=== PATIENT | female | born 1980 | race American Indian/Alaskan Native ===

== ENCOUNTER 2017-09-07 10:34 | Observation (INO) | payer OTHER ==
--- NOTE | 2017-09-06 09:48 | Anesthesia Consultation ---
Anesthesia Consult and Med Hx Date of service: 09/06/17 - Airway Anesthetic Teeth Evaluation: Good, Chipped (top right and left molar) ROM Head & Neck: Adequate Mental/Hyoid Distance: Adequate Mallampati Class: Class II Intubation Access Assessment: Probably Good - Pulmonary Exam CTA: Yes - Cardiac Exam Cardiac Exam: RRR - Pre-Operative Health Status ASA Pre-Surgery Classification: ASA2 Proposed Anesthetic Plan: General Nerve Block: tap - Pulmonary Hx Smoking: Yes (3 cigs / day, smoked since age 10) Hx Asthma: Yes (childhood and seasonal) Hx Respiratory Symptoms: No (sinus problems) - Cardiovascular System Hx Hypertension: No - Central Nervous System Hx Seizures: No CVA: No Hx Psychiatric Problems: No - Endocrine Hx End Stage Renal Disease: No Hx Hypothyroidism: No - Other Systems Hx Alcohol Use: Yes (occas) Hx Cancer: No Hx Obesity: Yes
[2017-09-06 10:33] LABS: Eosinophils % (Auto) 12.8 % (0.0-4.3); Hematocrit 35.4 % (30.3-42.9); Hemoglobin 11.7 gm/dl (10.1-14.3); Mean Corpuscular HGB Conc 33 % (30-34); Mean Corpuscular Hemoglobin 28 pg (28-32); Mean Corpuscular Volume 84 fl (79-97); Platelet Count 336 K/mm3 (140-440); Red Blood Count 4.21 M/mm3 (3.65-5.03); Red Cell Distribution Width 17.8 % (13.2-15.2); White Blood Count 5.7 K/mm3 (4.5-11.0)
[~2017-09-07 10:34] MED LIST: NACL 0.9% 1000 ML 1,000 ML IV SCH; NEURONTIN PO NR; PEPCID PO NR; SUBLIMAZE IV NR; VERSED IV NR
--- NOTE | 2017-09-07 11:56 | History and Physical Report ---
History of Present Illness Date of examination: 09/07/17 Chief complaint: Prolonged heavy vaginal bleeding due to uterine fibroids and Adenomyosis History of present illness: Pt is a 36yo BF LMP 08/26/17 presents for surgical evaluation and treatment of prolonged heavy vaginal bleeding due to uterine fibroids and Adenomyosis. Pelvic u/s 05/17/17 showed uterus 9.1 x 5.5 x 4.8cm with 2 anterior wall fibroids and myometrium suggestive of Adenomyosis. She is now consented for a Robotic Assisted Total Hysterectomy with ovarian conservation. 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 Family/Genetic History: diabetes, hypertension Social history: no significant social history, Medications and Allergies Allergies Allergy/AdvReac Type Severity Reaction Status Date / Time No Known Allergies Allergy Unverified 09/01/17 12:13 Home Medications Medication Instructions Recorded Confirmed Last Taken Type No Known Home Medications [No 09/01/17 09/01/17 Unknown History Reported Home Medications] Active Meds: Active Medications Celecoxib (Celebrex) 200 mg PO PREOP NR Stop: 09/07/17 23:59 Famotidine (Pepcid) 20 mg PO PREOP NR Stop: 09/07/17 23:59 Fentanyl (Sublimaze) 100 mcg IV ONCE NR Stop: 09/07/17 23:59 Gabapentin (Neurontin) 600 mg PO PREOP NR Stop: 09/07/17 23:59 Sodium Chloride (Nacl 0.9% 1000 Ml) 1,000 mls @ 75 mls/hr IV DIRECT PAYTON Midazolam HCl (Versed) 2 mg IV PREOP NR Stop: 09/07/17 23:59 Review of Systems All systems: negative - Vital Signs Vital signs: Vital Signs Temp Pulse Resp BP 98.5 F 70 16 120/76 09/06/17 09:00 09/06/17 09:00 09/06/17 09:00 09/06/17 09:00 Temp Pulse Resp BP Pulse Ox 98.5 F 70 16 120/76 09/06/17 09:00 09/06/17 09:00 09/06/17 09:00 09/06/17 09:00 - Physical Exam Breasts: Positive: deferred Cardiovascular: Regular rate Lungs: Positive: Clear to auscultation Abdomen: Positive: normal appearance Genitourinary (Female): Positive: normal external genitalia Vagina: Positive: normal moisture Uterus: Positive: enlarged Anus/Rectum: Positive: normal perianal skin Extremities: Positive: normal Results Result Diagrams: 09/06/17 09:10 All other labs normal. Ultrasound: report reviewed Assessment and Plan - Patient Problems (1) Adenomyosis Onset Date: 09/07/17 Current Visit: Yes Status: Acute Plan to address problem: A: Menorrhagia - due to uterine fibroids and adenomyosis P: Will proceed with a Robotic Assisted Total Hysterectomy with Bilateral Salpingectomy (2) Uterine fibroid Onset Date: 09/07/17 Current Visit: Yes Status: Acute Qualifiers: Uterine leiomyoma location: intramural and subserous Qualified Code(s): D25.1 - Intramural leiomyoma of uterus; D25.2 - Subserosal leiomyoma of uterus; D25.2 - Subserosal leiomyoma of uterus
[2017-09-07] MEDS ORDERED: ANCEF/STERILE WATER 2 GM/20 ML 2 GM/20 ML SYRINGE IV SCH (12:00)
[2017-09-07] MEDS ORDERED: LACTATED RINGERS 1,000 ML IV SCH (12:00)
[2017-09-07] MEDS ORDERED: PROAIR IH ONE (12:30)
[2017-09-07] MEDS ORDERED: DECADRON ONE ×2 (12:39→14:47)
[2017-09-07] MEDS ORDERED: MARCAINE 0.5% INFILTRATI ONE (12:41)
[2017-09-07] MEDS ORDERED: NEOSPORIN GU IR ONE ×2 (13:23→15:00)
--- NOTE | 2017-09-07 13:23 | Anesthesia Day of Surgery ---
Anesthesia Day of Surgery - Day of Surgery Patient Examined: Yes Patient H&P Reviewed: Yes Patient is NPO: Yes
[2017-09-07] MEDS ORDERED: XYLOCAINE MPF 2% ONE (13:37)
[2017-09-07] MEDS ORDERED: DIPRIVAN 10 MG/ML IV ONE (13:37)
[2017-09-07] MEDS ORDERED: DILAUDID ONE ×2 (13:37→15:44)
[2017-09-07] MEDS ORDERED: ZEMURON IV ONE (13:37)
[2017-09-07] MEDS ORDERED: NACL 0.9% 1000 ML 1,000 ML ONE (14:21)
[2017-09-07] MEDS ORDERED: NEOSTIGMINE ONE (14:47)
[2017-09-07] MEDS ORDERED: ROBINUL ONE (14:47)
[2017-09-07] MEDS ORDERED: ZOFRAN ONE (14:47)
[2017-09-07] MEDS ORDERED: WATER FOR IRRIG STERILE IR ONE (15:00)
[2017-09-07] MEDS ORDERED: NACL 0.9% IR ONE ×2 (15:00)
[2017-09-07] MEDS ORDERED: MILK OF MAGNESIA PO PRN (15:20)
[2017-09-07] MEDS ORDERED: PERCOCET 5/325 PO PRN (15:20)
[2017-09-07] MEDS ORDERED: NARCAN 0.4 MG/1 ML IV PRN (15:20)
[2017-09-07] MEDS ORDERED: NORCO 5/325 PO PRN (15:20)
[2017-09-07] MEDS ORDERED: SODIUM CHLORIDE FLUSH SYRINGE 10 ML IV PRN (15:20)
[2017-09-07] MEDS ORDERED: REGLAN IV PRN (15:20)
[2017-09-07] MEDS ORDERED: TYLENOL PO PRN (15:20)
[2017-09-07] MEDS ORDERED: ZOFRAN IV PRN (15:20)
--- NOTE | 2017-09-07 15:20 | Operative Report ---
Operative Report Operative Report: Date of procedure: 09/07/2017 Pre-operative diagnosis: 1. Menorrhagia 2. Adenomyosis 3. Uterine fibroids Post-operative diagnosis: Same Procedure name(s): 1. Robotic-assisted total hysterectomy 2. Bilateral salpingectomy Surgeon: Catrachito Larry MD Mems Integration Engineer: MERLIN Garcia Anesthesia: LITA Block followed by general endotracheal intubation EBL: Less than 50 mL's Findings: A 10-12 week size uterus with tubes showed evidence of previous tubal ligation bilaterally. Normal ovaries bilaterally. Procedure: After the patient's first correctly identified she was prepped and draped in the usual sterile fashion and placed in the dorsolithotomy position. The bladder was first catheterized using Harley catheter and the speculum was placed in the vagina and the anterior lip of the cervix was grasped using a single-tooth tenaculum, and the medium Vesicare cup was placed. The tenaculum and speculum was then removed from the vagina and attention was then turned to the abdomen. The skin knife was used to make a small incision approximately 5 cm above the umbilicus through which a 12 mm trocar was placed under direct visualization. After adequate amount of abdominal insufflation visualization of the pelvic organs found the uterus to be enlarged and the tubes showed evidence of previous tubal ligation, and ovaries were found to be normal bilaterally. A right lateral incision was made through which a 5 mm trocar was placed under direct visualization. A right and left paramedian incision was made through which the 8 mm trochars were placed under direct visualization. The patient was then placed in steep Trendelenburg positioning and the robot was docked on the patient's left side. After all the robotic ports were connected and adequate functioning of the robotic arms were tested the surgeon then proceeded to the console to begin the hysterectomy. First the left round ligament was grasped, cauterized and cut, the left utero- ovarian ligaments were grasped, cauterized and cut, and the left fallopian tube also grasped, cauterized and cut along the mesosalpinx thus freeing the left ovary from the left uterine sidewall. The same procedure was performed on the right. The right round ligament was grasped, cauterized and cut, the right utero-ovarian ligaments were grasped, cauterized and cut, and the right fallopian tube also grasped, cauterized and cut along the mesosalpinx thus freeing the right ovary from the right uterine sidewall. The bladder flap was taken down anteriorly and the uterine vessels were grasped, cauterized and cut bilaterally. The cardinal ligaments were sequentially grasped, cauterized and cut down to the level of the uterosacral ligaments. At this time the posterior colpotomy was performed over the Vcare cup, and the cervix was circumscribed beginning posteriorly and meeting anteriorly until the cervix was freed. The cervix and uterus was then removed through the vagina and sent to pathology. The vaginal cuff was then closed using 2-0 Vloc suture in a running fashion. Irrigation was then performed and after good hemostasis was achieved the procedure was considered complete. The Tisseel sealant was then sprayed across the vaginal cuff site, and after excellent hemostasis was assured Interceed was placed across the vaginal cuff site. All instruments were then removed from the abdominal cavity. And each incision was closed using 0 Vicryl suture in a [id number] configuration on the fascia followed by 4-0 Monocryl suture in a sub-cuticular fashion on the skin. Each incision was also infiltrated using 0.5% Marcaine solution. The vaginal pack was removed. The patient tolerated the procedure well and was transported to the recovery room in stable condition.
[2017-09-07] MEDS ORDERED: DILAUDID IV PRN (15:40)
[2017-09-07] MEDS: TORADOL IV SCH ×2 (15:49→22:02)
[2017-09-07] MEDS ORDERED: D5LR 1,000 ML IV SCH (16:00)
[2017-09-07] MEDS ORDERED: ANCEF/NS 1 GM/50 ML 1 GM/50 ML BAG IV SCH (16:00)
--- NOTE | 2017-09-07 17:05 | Post Anesthesia Evaluation ---
- Post Anesthesia Evaluation Patient Participated: Yes Airway Patent: Yes Stable Respiratory Function: Yes Nausea/Vomiting: No Temp > 96.8F: Yes Pain Manageable: Yes Adequeate Hydration: Yes Anesthesia Complications: No
[2017-09-07] MEDS: ceFAZolin 1 GM in NACL 0.9% 20 ML IV SCH (21:57)
[2017-09-07] MEDS: COLACE PO SCH (22:58)
[2017-09-08] MEDS: TORADOL IV SCH (03:52)
[2017-09-08 05:21] LABS: Hematocrit 33.3 % (30.3-42.9); Hemoglobin 10.8 gm/dl (10.1-14.3)
[2017-09-08] MEDS: ceFAZolin 1 GM in NACL 0.9% 20 ML IV SCH (05:27)
--- NOTE | 2017-09-08 09:10 | Progress Note ---
Assessment and Plan - Patient Problems (1) Adenomyosis Onset Date: 09/07/17 Current Visit: Yes Status: Resolved (2) Uterine fibroid Onset Date: 09/07/17 Current Visit: Yes Status: Resolved Qualifiers: Uterine leiomyoma location: intramural and subserous Qualified Code(s): D25.1 - Intramural leiomyoma of uterus; D25.2 - Subserosal leiomyoma of uterus; D25.2 - Subserosal leiomyoma of uterus (3) Status post robot-assisted surgical procedure Onset Date: 09/08/17 Current Visit: Yes Status: Resolved Plan to address problem: A: S/P RATH - POD #1 Doing well P: May go home today. Subjective - Subjective Date of service: 09/08/17 Principal diagnosis: s/p RATH - POD #1 Interval history: Pt is feeling well without complaints. She is tolerating a liquid diet without nausea or vomiting, ambulating and voiding without difficulty. Patient reports: appetite normal, voiding normally, pain well controlled, flatus , ambulating normally Objective - Vital Signs Latest vital signs: Vital Signs Temp Pulse Resp BP BP Pulse Ox 09/08/17 04:52 97.8 F 51 L 18 122/54 09/08/17 03:52 16 09/08/17 01:19 97.8 F 52 L 20 107/69 09/07/17 22:32 16 09/07/17 22:02 16 09/07/17 20:35 97.5 F L 52 L 18 111/70 09/07/17 18:40 97.6 F 62 15 109/63 100 09/07/17 18:35 97.6 F 54 L 15 109/63 100 09/07/17 18:15 97.4 F L 54 L 13 107/59 97 09/07/17 18:00 56 L 17 103/60 98 09/07/17 17:45 52 L 13 97/59 95 09/07/17 17:30 59 L 11 L 99/57 97 09/07/17 17:15 53 L 13 90/60 94 09/07/17 17:00 55 L 10 L 97/58 96 09/07/17 16:45 51 L 12 94/53 95 09/07/17 16:30 50 L 11 L 97/54 94 09/07/17 16:15 51 L 10 L 93/60 95 09/07/17 16:00 52 L 11 L 92/55 95 09/07/17 15:49 12 09/07/17 15:45 51 L 12 98/60 96 09/07/17 15:40 51 L 11 L 103/58 96 09/07/17 15:29 68 12 109/65 100 09/07/17 15:21 98.8 F 68 12 95/41 100 09/07/17 13:20 63 15 102/61 100 09/07/17 13:15 62 15 108/62 99 09/07/17 13:10 60 13 104/64 99 09/07/17 13:05 62 12 104/66 100 09/07/17 13:00 60 15 106/60 100 09/07/17 12:55 59 L 15 105/61 100 09/07/17 12:50 60 12 104/71 100 09/07/17 12:45 60 11 L 108/68 100 09/07/17 12:40 68 15 105/64 100 09/07/17 12:08 98.4 F 64 13 115/54 99 09/07/17 12:03 98.4 F 64 13 115/54 99 Intake and Output 09/07/17 09/08/17 09/08/17 22:59 06:59 14:59 Intake Total 700 480 Output Total 50 1100 Balance 650 -620 Intake: IV 700 Intake, Free Water 480 Output: Urine 50 1100 Void 1100 Other: Total, Output Amount 600 - Exam Cardiovascular: Present: Regular rate Lungs: Present: Clear to auscultation Abdomen: Present: normal appearance, soft Extremities: Present: normal Incision: Present: normal, dry, intact - Labs Labs: Laboratory Tests 09/06/17 09/06/17 09/06/17 09:10 09:10 09:10 WBC 5.7 RBC 4.21 Hgb 11.7 Hct 35.4 MCV 84 MCH 28 MCHC 33 RDW 17.8 H Plt Count 336 Lymph % (Auto) 21.6 [place] % (Auto) 7.9 H Eos % (Auto) 12.8 H Baso % (Auto) 1.0 Lymph # 1.2 [place] # 0.4 Eos # 0.7 H Baso # 0.1 Seg Neutrophils % 56.7 Seg Neutrophils # 3.2 HCG, Qual Negative Blood Type O POSITIVE Antibody Screen Negative 09/08/17 04:54 WBC RBC Hgb 10.8 Hct 33.3 MCV MCH MCHC RDW Plt Count Lymph % (Auto) [place] % (Auto) Eos % (Auto) Baso % (Auto) Lymph # [place] # Eos # Baso # Seg Neutrophils % Seg Neutrophils # HCG, Qual Blood Type Antibody Screen
[2017-09-08] MEDS: COLACE PO SCH (09:13)
--- NOTE | 2017-09-08 09:16 | Discharge Summary ---
Providers - Providers Date of Admission: 09/07/17 15:20 Date of discharge: 09/08/17 Attending physician: LITZY SEQUEIRA Primary care physician: DRY PASTE SUPERVISOR Hospitalization Reason for admission: other (Menorrhagia; Adenomyosis; Uterine fibroids) Procedure: other (Robotic Assisted Total Hysterectomy) Incision: normal, dry, intact Other procedures: none complications: none Discharge diagnosis: other (s/p RATH) Hospital course: Pt is a 36yo BF LMP 08/26/17 who presented for surgical evaluation and treatment of prolonged heavy vaginal bleeding due to uterine fibroids and Adenomyosis. Pelvic u/s 05/17/17 showed uterus 9.1 x 5.5 x 4.8cm with 2 anterior wall fibroids and myometrium suggestive of Adenomyosis. She underwent a Robotic Assisted Total Hysterectomy with Bilateral Salpingectomy and tolerated the procedure well. Post operative course has been unremarkable, and by POD #1 she was tolerating a reg diet without nausea or vomiting, ambulating and voiding without difficulty, and therefore discharged to home on POD #1 in stable condition. Condition at discharge: Good Disposition: DC-01 TO HOME OR SELFCARE - Discharge Diagnoses (1) Adenomyosis Status: Resolved (2) Uterine fibroid Status: Resolved Qualifiers: Uterine leiomyoma location: intramural and subserous Qualified Code(s): D25.1 - Intramural leiomyoma of uterus; D25.2 - Subserosal leiomyoma of uterus; D25.2 - Subserosal leiomyoma of uterus Plan - Discharge Medications Prescriptions: HYDROcodone/APAP 5-325 [Collins 5-325 mg TAB] 1 each PO Q6HR PRN #30 tablet PRN Reason: Pain, Moderate (4-6) Ibuprofen [Motrin] 800 mg PO Q8HR PRN #30 tablet PRN Reason: Moder Pain Unrelieved By Collins - Provider Discharge Summary Activity: routine, no sex for 6 weeks, no heavy lifting 4 weeks, no strenuous exercise Diet: routine Instructions: routine Additional instructions: [] Smoking cessation referral if applicable(refer to patient education folder for contact #) [] Refer to [facility] Booklet Call your doctor immediately for: * Fever > 100.5 * Heavy vaginal bleeding ( >1 pad per hour) * Severe persistent headache * Shortness of breath * Reddened, hot, painful area to leg or breast * Drainage or odor from incision. * Keep incision clean and dry at all times and follow doctor's instructions regarding bathing/showering - Follow up plan Follow up: PRIMARY CARE, [Primary Care Provider] - 7 Days LITZY SEQUEIRA MD [Staff Physician] - 14 Days
[2017-09-08 09:48] VITALS: BP 119/71
--- NOTE | 2017-09-08 09:49 | Progress Note ---
Subjective Date of service: 09/08/17 Principal diagnosis: s/p RATH - POD #1 Interval history: 1st POD after robotic hysterectomy Patient is in the bed, comfortable. Pain is well controlled with pain meds. Ambulated well. No nausea or vomiting. No anesthesia complications. Being discharged by the surgeon Objective - Constitutional Vitals: Vital Signs - 12hr 09/07/17 09/07/17 09/08/17 22:02 22:32 01:19 Temperature 97.8 F Pulse Rate 52 L Respiratory 16 16 20 Rate Blood Pressure 107/69 [Right] 09/08/17 09/08/17 03:52 04:52 Temperature 97.8 F Pulse Rate 51 L Respiratory 16 18 Rate Blood Pressure 122/54 [Right] - Labs CBC & Chem 7: 09/08/17 04:54
== END 2017-09-08 12:11 | disposition home or self-care (01) ==
LOC: OR 10:34 → OB 15:20
PROVIDERS: ADMIT Obstetrics & Gynecology; ATTEND Obstetrics & Gynecology
DX: N92.0 Excessive and frequent menstruation with regular cycle (principal); N80.0 Endometriosis of uterus; D25.1 Intramural leiomyoma of uterus; D25.0 Submucous leiomyoma of uterus; Z98.890 Other specified postprocedural states; Z83.3 Family history of diabetes mellitus; Z82.49 Family history of ischemic heart disease and other diseases of the circulatory system
CPT/HCPCS: 36415; 58571; 64450; 84703; 85014; 85018; 85025; 86850; 86900; 86901; 88302; 88307; 96365; 96366; 96375; 96376; A4217; C9250; G0378; J0690; J1100; J1170; J1885; J2250; J2405; J2704; J2710; J3010; J7030; J7120; J7121; S2900

== ENCOUNTER 2021-06-06 04:48 | Emergency (ER) | payer OTHER, SELFPAY ==
[2021-06-06 06:33] VITALS: BP 129/86
--- NOTE | 2021-06-06 07:06 | XRay Report ---
CHEST 2 VIEWS INDICATION / CLINICAL INFORMATION: chest pain. COMPARISON: None available. FINDINGS: SUPPORT DEVICES: None. HEART / MEDIASTINUM: No significant abnormality. LUNGS / PLEURA: No significant pulmonary or pleural abnormality. No pneumothorax. ADDITIONAL FINDINGS: No significant additional findings. IMPRESSION: 1. No acute findings. Signer Name: Eugene Neves MD Signed: 06/06/2021 7:01 AM Workstation Name: [id number]
--- NOTE | 2021-06-06 10:43 | Electrocardiograph Report ---
[facility] Test Date: 2021-06-06 Test Time: 06:32:04 Pat Name: SAGRARIO YOUNG Department: Room: Gender: F Chief Of Party: ROBERT : 1980 Requested By: ED DOC Order Number: [id number] Reading MD: Natalio Sherwood Measurements Intervals [place] Rate: 71 P: 35 GA: 126 QRS: 42 QRSD: 80 T: 46 QT: 382 QTc: 416 Interpretive Statements Sinus rhythm No previous ECG available for comparison Electronically Signed On 06-06-2021 10:43:34 EDT by Natalio Sherwood
--- NOTE | 2021-06-06 11:47 | Emergency Department Report ---
ED General Adult HPI - General Chief complaint: Upper Respiratory Infection Stated complaint: COVID+LOW BACK PAIN HEAD HURT Time Seen by Provider: 06/06/21 11:11 Source: patient Mode of arrival: Ambulatory Limitations: No Limitations - History of Present Illness Initial comments: Is a very pleasant 40-year-old female with a past medical history of asthma who presents to the emergency department the chief complaint of generalized body aches worse in her lower back, subjective fevers and chills, fatigue, right- sided chest pain when she coughs or moves that has been present over the past 3 days. She tested positive for COVID-19 yesterday. She did not get the COVID-19 vaccine. She denies any cough, shortness of breath, weakness, mopped assist, lower extremity edema, abdominal pain, nausea, vomiting, diarrhea, focal weakness or any other associated symptoms. 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 - Related Data Previous Rx's Medication Instructions Recorded Last Taken Type HYDROcodone/APAP 5-325 [[place] 1 each PO Q6HR PRN #30 tablet 09/08/17 Unknown Rx 5-325 mg TAB] Ibuprofen [Motrin] 800 mg PO Q8HR PRN #30 tablet 09/08/17 Unknown Rx Albuterol Sulfate [Proventil Hfa] 6.7 gm IH Q4HR #1 hfa.aer.ad 06/06/21 Unknown Rx methylPREDNISolone [Medrol 4MG 4 mg PO ONCE #1 tab.ds.pk 06/06/21 Unknown Rx DOSEPAK (21 tabs)] Allergies Allergy/AdvReac Type Severity Reaction Status Date / Time No Known Allergies Allergy Unverified 09/01/17 12:13 ED Review of Systems ROS: Stated complaint: COVID+LOW BACK PAIN HEAD HURT Other details as noted in HPI Comment: All other systems reviewed and negative Constitutional: see HPI, chills, fever, malaise Eyes: denies: eye pain, eye discharge, vision change ENT: denies: ear pain, throat pain Respiratory: no symptoms reported. denies: cough, shortness of breath, wheezing Cardiovascular: denies: chest pain, palpitations Endocrine: no symptoms reported Gastrointestinal: denies: abdominal pain, nausea, diarrhea Genitourinary: denies: urgency, dysuria, discharge Musculoskeletal: back pain. denies: joint swelling, arthralgia Skin: denies: rash, lesions Neurological: denies: headache, weakness, paresthesias Psychiatric: denies: anxiety, depression Hematological/Lymphatic: denies: easy bleeding, easy bruising ED Past Medical Hx - Past Medical History Previous Medical History?: Yes Hx Hypertension: No Hx Congestive Heart Failure: No Hx Diabetes: No Hx Headaches / Migraines: Yes (migraines) Hx Seizures: No Hx Asthma: Yes (childhood and seasonal) Hx COPD: No - Surgical History Past Surgical History?: Yes Additional Surgical History: Hysterectomy - Social History Smoking Status: Never Smoker Substance Use Type: Alcohol - Medications Home Medications: Home Medications Medication Instructions Recorded Confirmed Last Taken Type HYDROcodone/APAP 5-325 [[place] 1 each PO Q6HR PRN #30 tablet 09/08/17 Unknown Rx 5-325 mg TAB] Ibuprofen [Motrin] 800 mg PO Q8HR PRN #30 tablet 09/08/17 Unknown Rx Albuterol Sulfate [Proventil Hfa] 6.7 gm IH Q4HR #1 hfa.aer.ad 06/06/21 Unknown Rx methylPREDNISolone [Medrol 4MG 4 mg PO ONCE #1 tab.ds.pk 06/06/21 Unknown Rx DOSEPAK (21 tabs)] ED Physical Exam - General Limitations: No Limitations General appearance: alert, in no apparent distress - Head Head exam: Present: atraumatic, normocephalic - Eye Eye exam: Present: normal appearance, PERRL, EOMI Pupils: Present: normal accommodation - ENT ENT exam: Present: normal exam, normal orophraynx, mucous membranes moist, TM's normal bilaterally - Neck Neck exam: Present: normal inspection, full ROM. Absent: tenderness, meningismus - Respiratory Respiratory exam: Present: normal lung sounds bilaterally. Absent: respiratory distress, wheezes, rales, rhonchi, stridor, chest wall tenderness - Cardiovascular Cardiovascular Exam: Present: regular rate, normal rhythm, normal heart sounds. Absent: systolic murmur, diastolic murmur, rubs, gallop - GI/Abdominal GI/Abdominal exam: Present: soft, normal bowel sounds. Absent: distended, tenderness, guarding, rebound, rigid - Extremities Exam Extremities exam: Present: normal inspection, full ROM. Absent: tenderness, normal capillary refill, calf tenderness (No lower extreme edema, negative Homans' sign bilaterally.) - Back Exam Back exam: Present: normal inspection, full ROM. Absent: tenderness, CVA tenderness (R), CVA tenderness (L) - Neurological Exam Neurological exam: Present: alert, oriented X3, CN II-XII intact, normal gait - Psychiatric Psychiatric exam: Present: normal affect, normal mood - Skin Skin exam: Present: warm, dry, intact, normal color. Absent: rash ED Course Vital Signs 06/06/21 06:26 Temperature 99.2 F Pulse Rate 90 Respiratory 20 Rate Blood Pressure 129/86 O2 Sat by Pulse 96 Oximetry ED Medical Decision Making - EKG Data Interpretation: normal EKG (Normal sinus rhythm with a ventricular rate of [address] or T wave abnormalities, normal axis, normal intervals) - Radiology Data Radiology results: report reviewed No acute findings. No infiltrate. No widening of the mediastinum. - Medical Decision Making Patient is nontoxic in no acute distress. Vital signs are stable. Pulse ox saturation is 96% on room air which is normal. The patient is PERC negative and a low risk by Wells criteria for PE and had no clinical symptoms of DVT on exam with a negative Homans' sign bilaterally no posterior calf tenderness no palpable cords. She had a negative chest x-ray with no infiltrates and normal lung sounds making Covid pneumonia low risk at this time. Her EKG was unremarkable and the patient had reproducible chest wall pain making my suspicion for ACS very low. She states the pain was only present when she moves or coughs I think this is atypical. I did offer to do blood work including troponins however the patient politely declined which I think is reasonable at this time. She was instructed to get a portable pulse ox monitor at home and to continue to monitor oxygen level and if it decreases into the 80s and stays there she needs to return to the emergency department. We'll treat her with steroids, inhalers and anti-inflammatories for her back pain and recommend she follow-up with her primary care doctor. She verbalized understanding the diagnosis, treatment plan and follow-up instructions and all of her questions were answered. Critical care attestation.: If time is entered above; I have spent that time in minutes in the direct care of this critically ill patient, excluding procedure time. ED Disposition Clinical Impression: COVID-19, Acute viral syndrome Disposition: 01 HOME / SELF CARE / HOMELESS Is pt being admited?: No Condition: Stable Instructions: COVID-19 Frequently Asked Questions, Prevent the Spread of COVID- 19 if You Are Sick - [facility] Prescriptions: methylPREDNISolone [Medrol 4MG DOSEPAK (21 tabs)] 4 mg PO ONCE #1 tab.ds.pk Albuterol Sulfate [Proventil Hfa] 6.7 gm IH Q4HR #1 hfa.aer.ad Referrals: PRIMARY CARE, [Primary Care Provider] - 3-5 Days [facility] [Provider Group] - 3-5 Days Forms: Work/School Release Form(ED) Time of Disposition: 11:48
== END 2021-06-06 12:04 | disposition home or self-care (01) ==
LOC: ED 04:48
DX: U07.1 COVID-19 (principal); B34.9 Viral infection, unspecified; G43.909 Migraine, unspecified, not intractable, without status migrainosus; Z90.710 Acquired absence of both cervix and uterus; Z72.89 Other problems related to lifestyle; Z79.899 Other long term (current) drug therapy
CPT/HCPCS: 71046; 93005; 99283